=== PATIENT | male | born 1940 ===

== ENCOUNTER 2018-02-17 07:30 | Inpatient (IN) | payer BC, OTHER ==
[2018-02-10 11:38] LABS: PLATELET COUNT 325 10^3/uL (150-400)
--- NOTE | 2018-02-17 06:35 | PDHPUP ---
History & Physical Update H&P update statement: This history and physical update is based on an assessment of the patient which was completed after admission or registration (within 24 hours), but prior to the surgery/procedure. H&P update: H&P reviewed & patient examined, no change in patient's condition since H&P completed
[2018-02-17] MEDS ORDERED: GABAPENTIN 300 MG CAP PO ONE (08:40)
[2018-02-17] MEDS ORDERED: ACETAMINOPHEN 500 MG TAB PO ONE (08:40)
[2018-02-17] MEDS ORDERED: ceFAZolin 2 GM/SWFI 2 GM/20 ML SYR IVP ONE (08:40)
[2018-02-17] MEDS ORDERED: LIDOCAINE 1% 2 ML INJ ID PRN (08:48)
[2018-02-17] MEDS ORDERED: LR 1,000 ML IV ONE (08:48)
[2018-02-17] MEDS ORDERED: CHLORHEXIDINE GLUC HIBICLENS 118 ML BTL TP ONE (09:11)
[2018-02-17] MEDS ORDERED: THROMBIN (BOVINE) 5,000 UNIT VIAL TP ONE (09:11)
[2018-02-17] MEDS ORDERED: BUPIVACAINE 0.25% 30 ML SDV ONE (09:11)
[2018-02-17] MEDS ORDERED: BACITRACIN 50,000 UNITS/10 ML SYR IRR ONE ×2 (09:12→12:38)
[2018-02-17] MEDS ORDERED: EPINEPHrine 1 MG/ML INJ ONE (09:13)
--- NOTE | 2018-02-17 09:37 | PDANEPAE ---
ANE Past Medical History - Cardiovascular History Hx Hypertension: No Hx Arrhythmias: No Hx Chest Pain: No Hx Coronary Artery / Peripheral Vascular Disease: No Hx CHF / Valvular Disease: No Hx Palpitations: No - Pulmonary History Hx COPD: No Hx Asthma/Reactive Airway Disease: No Hx Recent Upper Respiratory Infection: No Hx Oxygen in Use at Home: No Hx Sleep Apnea: No Sleep Apnea Screening Result - Last Documented: Negative - Neurologic History Hx Cerebrovascular Accident: No Hx Seizures: No Hx Dementia: No Neurologic History Comment: numbness to left leg and foot at times - Endocrine History Hx Diabetes: No - Renal History Hx Renal Disorders: No - Liver History Hx Hepatic Disorders: No - Neurological & Psychiatric Hx Hx Neurological and Psychiatric Disorders: No - Cancer History Hx Cancer: No - Congenital Disorder History Hx Congenital Disorders: No - GI History Hx Gastrointestinal Disorders: Yes Gastrointestinal History Comment: reflux- on nexium - Other Health History Other Health History: lower left partial bridge - Chronic Pain History Chronic Pain: Yes (bilateral knees, left thigh and back/ hip area) - Surgical History Prior Surgeries: 06/2015 fibula removed and placed in jaw- 12 hr surgery with skin grafting. 4 different jaw surgeries over 3 years for a benign cyst- most of lower left jaw removed. right knee surgery 30 yrs ago- no knee cap ANE Review of Systems Review of Systems: - Exercise capacity METS (RN): 4 METS ANE Patient History - Allergies Allergies/Adverse Reactions: ibuprofen [From Advil] Allergy (Verified 02/17/18 08:41) ULCERS Sulfa (Sulfonamide Antibiotics) Allergy (Verified 02/17/18 08:41) Hives - Home Medications Home Medications: Acetaminophen [Tylenol ES 500 mg (*)] 500 mg PO BIDMEAL 01/14/18 [Last Taken 22:00] Acetamn/Diphenhydramine 500/25 [Tylenol PM (*)] 1 each PO HS 01/14/18 [Last Taken 02/03/18] Allopurinol [Allopurinol 300 MG (RX)] 300 mg PO DAILY 01/14/18 [Last Taken 02/16 09:00] Aspirin [Aspirin 81mg (*)] 81 mg PO HS 01/14/18 [Last Taken 02/10/18] Cholecalciferol Vit D3 [Vitamin D3 2000 units tab (OTC)] 2,000 units PO BIDMEAL 01/14/18 [Last Taken 02/10/18] Esomeprazole Mag Trihydrate [Nexium] 40 mg PO DAILY 01/14/18 [Last Taken 06:45] FENOFIBRATE 160 mg PO HS 01/14/18 [Last Taken 02/16/18 22:00] Gabapentin [Neurontin 300 MG (*)] 300 mg PO DAILY 01/14/18 [Last Taken 02/17/18 06:15] Gabapentin [Neurontin 300 MG (*)] 600 mg PO HS 01/14/18 [Last Taken 02/16/18 22: 00] Glucosamine Sulfate [Glucosamine Sulfate 500 MG (*)] 1,500 mg PO BIDMEAL [Last Taken 02/10/18] Herbals/Supplements -Info Only 1 ea PO DAILY 01/14/18 [Last Taken 02/10/18] Multivitamins [Multivitamin (*)] 1 each PO DAILY 01/14/18 [Last Taken 02/10/18] Niacin ER [Niaspan 1000 mg (*)] 1,000 mg PO HS 01/14/18 [Last Taken 02/16/18 22: 00] [place]-3 Fatty Acids [Fish Oil 1000 mg (*)] 1,000 mg PO BIDMEAL 01/14/18 [Last Taken 02/10/18] Simvastatin [Zocor] 40 mg PO HS 01/14/18 [Last Taken 02/16/18 22:00] Teriparatide [Forteo] 20 mcg SQ DAILY18 01/14/18 [Last Taken 02/10/18] Vitamin B Complex [Vitamin B Complex (OTC)] 1 each PO DAILY 01/14/18 [Last Taken 02/10/18] - Smoking Hx Smoking Status: Never smoked - Family Anes Hx Family Hx Anesthesia Complications: none ANE Labs/Vital Signs - Labs Result Diagrams: 02/10/18 10:54 - Vital Signs Height: 182.88 cm Weight: 68.039 kg ANE Physical Exam - Airway Mallampati Score: Class 1 - ASA Status ASA Status: II ANE Anesthesia Plan Anesthesia Plan: general endotracheal anesthesia
[2018-02-17] MEDS ORDERED: LACTULOSE 20 GM/30 ML UDCUP PO PRN (09:45)
[2018-02-17] MEDS ORDERED: NALOXONE HCL 0.4 MG/ML INJ IVP PRN ×2 (09:45→14:55)
[2018-02-17] MEDS ORDERED: ONDANSETRON 4 MG/2 ML VIAL IVP PRN ×2 (09:45→14:55)
[2018-02-17] MEDS ORDERED: ONDANSETRON DISINTEGRATING 4 MG TAB PO PRN (09:45)
[2018-02-17] MEDS ORDERED: POLYETHYLENE GLYCOL 3350 17 GM PKT PO PRN (09:45)
[2018-02-17] MEDS ORDERED: NS W/ 20 KCl/L 1,000 ML IV SCH (09:45)
[2018-02-17] MEDS ORDERED: BISACODYL 10 MG SUPP PR PRN (09:45)
[2018-02-17] MEDS ORDERED: HYDROmorphONE/DILAUDID 6 MG/30 ML PCA IV PRN (09:45)
[2018-02-17] MEDS ORDERED: MAGNESIUM HYDROXIDE 30 ML UDCUP PO PRN (09:45)
[2018-02-17] MEDS ORDERED: HYDROCODONE/APAP 5/325 TAB PO PRN (09:45)
[2018-02-17] MEDS ORDERED: diphenhydrAMINE 25 MG CAP PO PRN (09:45)
[2018-02-17] MEDS ORDERED: MIDAZOLAM 2 MG/2 ML VIAL ONE (09:49)
[2018-02-17] MEDS ORDERED: PROPOFOL 200 MG/20 ML VIAL ONE ×2 (09:50→14:09)
[2018-02-17] MEDS ORDERED: PROPOFOL/EMULSION 500 MG/50 ML BOTTLE IV ONE ×2 (09:50→12:09)
[2018-02-17] MEDS ORDERED: fentaNYL 100 MCG/2 ML INJ ONE (09:50)
[2018-02-17] MEDS ORDERED: ONDANSETRON 4 MG/2 ML VIAL ONE (09:54)
[2018-02-17] MEDS ORDERED: METOCLOPRAMIDE 10 MG/2 ML VIAL ONE (09:54)
[2018-02-17] MEDS ORDERED: ROCURONIUM 50 MG/5 ML VIAL ONE (09:54)
[2018-02-17] MEDS ORDERED: NS 1,000 ML IV SCH (10:30)
[2018-02-17] MEDS ORDERED: PHENYLEPHRINE HCL 100 MCG/ML SYR ONE (11:53)
[2018-02-17] MEDS ORDERED: fentaNYL 100 MCG/2 ML INJ IVP PRN (14:55)
[2018-02-17] MEDS ORDERED: DEXAMETHASONE 4 MG/ML VIAL IVP PRN (14:55)
[2018-02-17] MEDS ORDERED: PROMETHAZINE HCL 25 MG/ML INJ IVP PRN (14:55)
[2018-02-17] MEDS ORDERED: LR 500 ML IV PRN (14:55)
--- NOTE | 2018-02-17 14:55 | SOAPPROG ---
SOAP Progress Note Assessment/Plan: Post Op Visit: S: Awake and alert. NAD. Pt with expected lower back pain O: AFVSS/PERRLA/EOMI no droop +lt touch 5/5 BUE/BLE = CDI A/P: 77 yo male that is s/p TLIF at L4/5 and L5/S1 -orders in place -call with any questions or concerns -pt understands and agrees -admit to floor -pt seen by Dr Limon as well 02/17/18 14:55 Objective: Vital Signs Temp Pulse Resp BP Pulse Ox 36.4 C 67 16 154/97 H 94 02/17/18 09:32 02/17/18 09:32 02/17/18 09:32 02/17/18 09:32 02/17/18 09:32 Laboratory Results 02/10/18 10:54 ICD10 Worksheet Patient Problems: Problems Problem Status Onset Arthrodesis status Acute Lumbar radicular pain Acute Lumbar stenosis Acute - ICD10 Problem Qualifiers (1) Lumbar stenosis (2) Lumbar radicular pain (3) Arthrodesis status
--- NOTE | 2018-02-17 14:56 | POSTANESTH ---
Post Anesthetic Evaluation Cardiovascular Status: Normal, Stable Respiratory Status: Normal, Stable Level of Consciousness/Mental Status: Can Participate in Eval Pain Control: Adequate, Prn Tx Ordered Nausea/Vomiting Control: Adequate, Prn Tx Ordered Complications Possibly Related to Anesthesia: None Noted
[2018-02-17] MEDS ORDERED: HYDROmorphONE/DILAUDID 2 MG/ML INJ ONE (15:02)
[2018-02-17] MEDS: HYDROmorphONE/DILAUDID 2 MG/ML INJ IVP PRN ×3 (15:07→15:35)
--- NOTE | 2018-02-17 16:26 | GOP ---
[f rep st] OPERATIVE REPORT DATE OF OPERATION: 02/17/2018 SURGEON: Jasmyne Limon MD SOUND EDITOR: Mayito Aguilar PA-C PREOPERATIVE DIAGNOSIS: Failed back syndrome, lumbar degenerative disk disease L4-5, L5-S1, severe l eft lumbosacral radiculopathy, prior surgery on the right at L4-5, L5-S1, lumbar facet arthropathy, s evere foraminal, left lateral recess stenosis, particularly at L4-5, left foraminal stenosis of L5-S1 . POSTOPERATIVE DIAGNOSIS: Failed back syndrome, lumbar degenerative disk disease L4-5, L5-S1, severe left lumbosacral radiculopathy, prior surgery on the right at L4-5, L5-S1, lumbar facet arthropathy, severe foraminal, left lateral recess stenosis, particularly at L4-5, left foraminal stenosis of L5-S 1. PROCEDURE PERFORMED: Posterior lateral and intervertebral arthrodesis L4-5, L5-S1, with decompressio ns on the left-hand side, L4-5, L5-S1 ([id number], [id number]), posterior segmental instrumentation L4, L5, S1 ([id number]), placement of biomechanical intervertebral device L4-5, L5-S1 (47387 x2), spinal stereotaxy, same incision bone graft harvest, microscope. FINDINGS: ESTIMATED BLOOD LOSS: 200 cc. DESCRIPTION OF PROCEDURE: Patient was taken to the operating room, placed in supine position. Gener al anesthesia was begun. He was flipped prone onto the Ryan table. Care was taken to pad all poi nts of contact. His back was sterilely prepped and draped in usual fashion. A localizing x-ray was taken. We made about a 6 cm incision above the L4-5 and L5-S1 interspace. The subcutaneous tissue was disse cted using Bovie cautery down to the fascia. Subperiosteal dissection was made down the rostral lami na of L4, the inferior lamina of L3, the complete lamina of L5 and S1 was exposed. The L4-5 and L5-S 1 facet joints were exposed, and indeed, the L4-5 facet joints just looked terrible. There were larg e and hypertrophic. There was large cyst coming out of the L4-5 facet joints and we denuded these fa cet joints. After taking a localizing x-ray, placed pedicle screws bilaterally at L4, 5, and S1 using frameless s tealth stereotaxy in the O-arm system. All the screws were checked by the O-arm system and they were in excellent position, and we stimulated each of them and they all stimulated at acceptable levels. We then spent considerable time decorticated all the posterolateral bone bilaterally at L4-5 and the sacrum. We removed all the soft tissue from the lamina of L4-5 and sacrum. We harvested the L5 spi nous process, the inferior L4 spinous process for autologous grafting purposes. We then drilled a le ft hemilaminectomy of L4 and L5 and harvested this bone for autologous grafting purposes. We perform ed an en bloc resection of the left reynaldo arch of L5, and as we worked our way up to the L4-5 level, t here was remarkable compression of the L5 nerve root at the L4-5 level, and this was all totally adhe rent to the overlying hypertrophic facet. At L5-S1, we decompressed the left S1 root and the exiting L5 nerve root. There were no adhesions wh atsoever at this level, but there was evidence of nerve compression both of the S1 root, as well as f oraminal stenosis of exiting L5 root. We spent considerable time under the operating microscope deco mpressing the left L5 nerve root and dissecting all of this material away from the 5 root, and we wer e ultimately able to free it and get the root decompressed. The dura at L4-5 was just remarkably thi n. There was no violation of the dura; however, but there was considerable angst during the surgery as we worked around such a remarkably thin dura at that level, particularly given the adhesions. After fully decompressing both segments, began initially at L4-5 where we mobilized the left L5 root, swept it medially, incised the L4-5 disk, removed the disk and the cartilaginous endplates. We roug hened the subchondral bone to create arthrodesis. We then went to the L5-S1 level where we swept the S1 nerve root medially and worked in the axilla of the L5 root incising the L5-S1 disk, removed the disk and the cartilaginous endplates. We roughened the subchondral bone to create arthrodesis. We then sized and chose a 7 x 28 mm device for L5-S1, and an 8 x 28 mm device for L4-5. We packed milton ne autograft and BMP into the disk space, followed by the expandable devices. They were elevate cage s. We inserted them under fluoroscopic guidance in a serial fashion, expanded them in serial fashion , and shot x-rays confirming excellent location of the devices, as well as the excellent elevation at both the L4-5, 5 1 levels. There was good lordosis of the spine. We then finished decorticating al l the remaining posterior lateral bone bilaterally, placed BMP posterolaterally bilaterally and bone autograft posterolaterally bilaterally. We used a total of 4 mg of BMP for the surgery, 2 mg was greg rola in the intervertebral spaces and 2 mg placed posterolaterally, 1 on each side. We placed a subfa scial drain. Final tightened all the cap screws according to company specification and closed the incision in mult iple layers using Vicryl sutures. Steri-Strips were applied the skin. The patient was reversed from anesthesia, extubated, and transferred to recovery room in stable condition. COMPLICATIONS: None. INSTRUMENTATION USED: In this case was Solera 5.5 mm system with a titanium azeb, used an 8 x 28 mm E levate cage at L4-5 and a 7 x 28 mm Elevate cage at L5-S1. INDICATIONS FOR PROCEDURE: The patient is a 77-year-old with prior history of right-sided decompress ions at L4-5, 5 1 with excellent clinical result who later developed severe left leg pain. MRI demon strated what appeared to be incompetent facets at L4-5 and there is early spondylolisthesis there. I saw no way to perform a lateral recess decompression without further destabilizing in the spine. He had a failed back. There was remarkable evidence of change on his MRI at the L4-5 level in particul ar, as well as foraminal stenosis, and I suggested a complete decompression on the left-hand side, re moval of the left L4-5 facet joint and L5-S1, and posterior stabilization with an intervertebral arth rodesis at that level. I thought there was a small chance he would get better with the simple decomp ression alone, but I felt that the segment at L4-5, 5 1 would really only truly be addressed with ins trumented fusion. There was evidence of incompetence of the right-sided facets as well, although thi s was degenerative in nature and did not appear to be related to his prior surgery on the right-hand side. He did want to proceed. He knew there was a problem at L3-4 prospectively and understood that in time he may ultimately require instrumentation up to the L3-4 level. It is our hope that this al one would give him good clinical benefit and that the future need for L3-4 surgery might not ever com e to fruition, only time would tell. He understood this. He knew there was risk of continued sympto ms, nerve injury, and spinal fluid leak, and he wanted to proceed. /[id number]/MODL
[2018-02-17] MEDS: oxyCODONE IR 5 MG TAB PO PRN ×2 (16:42→17:50)
[2018-02-17] MEDS: ACETAMINOPHEN 500 MG TAB PO SCH (17:50)
[2018-02-17] MEDS: ceFAZolin 2 GM/DEXTROSE 100 ML IV SCH (17:50)
[2018-02-17] MEDS: CHOLECALCIFEROL VIT D3 2,000 UNITS TAB/CAP PO SCH (17:50)
[2018-02-17] MEDS ORDERED: Teriparatide [Forteo] 20 MCG SQ SCH (18:00)
[2018-02-17] MEDS: NIACIN ER 1000 MG TAB.ER PO SCH (20:49)
[2018-02-17] MEDS: FENOFIBRATE 145 MG TAB PO SCH (20:49)
[2018-02-17] MEDS: FAMOTIDINE 20 MG TAB PO SCH (20:50)
[2018-02-17] MEDS: SENNOSIDES/DOCUSATE SODIUM TAB PO SCH (20:50)
[2018-02-17] MEDS: GABAPENTIN 300 MG CAP PO SCH (20:50)
[2018-02-17] MEDS: ATORVASTATIN CALCIUM 20 MG TAB PO SCH (20:50)
[2018-02-17] MEDS: ACETAMN/DIPHENHYDRAMINE 500/25MG TAB PO SCH (20:55)
[2018-02-17] MEDS ORDERED: NON-FORMULARY NEW DRUG (Simvastatin [Zocor] 40 MG) PO SCH (21:00)
[2018-02-17] MEDS ORDERED: NON-FORMULARY NEW DRUG (Fenofibrate [Fenofibrate] 160 MG) PO SCH (21:00)
--- NOTE | 2018-02-17 22:31 | PDMN ---
Medical Necessity Medical necessity: Patient meets inpatient criteria per PA/physician notes and [facility] S-820 Lumbar Fusion (TLIF L4/5, L5/S1; CPT 59819 / Medicare inpatient-only surgery.)
[2018-02-18] MEDS: ceFAZolin 2 GM/DEXTROSE 100 ML IV SCH (02:04)
[2018-02-18] MEDS: oxyCODONE IR 5 MG TAB PO PRN (02:04)
[2018-02-18 05:46] LABS: PLATELET COUNT 303 10^3/uL (150-400)
[2018-02-18] MEDS: FAMOTIDINE 20 MG TAB PO SCH ×2 (07:58→21:23)
[2018-02-18] MEDS: PANTOPRAZOLE SODIUM 40 MG TAB PO SCH (07:58)
--- NOTE | 2018-02-18 08:16 | NEUSURGPN ---
Date of Surgery: 02/17/18 Post Op Day: 1 Assessment/Plan: Assessment: 77 yo male that is s/p TLIF at L4/5 and L5/S1 POD #1 Plan: -pt with expected lower back pain-will adjust medications -recommend IV meds for now as stomach is upset from PO meds -pt states that his leg feels much better -PT/OT pending -post op xrays pending -brace when out of bed -orders in place -call with any questions or concerns -pt understands and agrees -pt seen by Dr Limon as well -pt updated on plan and agrees Subjective: Awake and alert. Pt with some expected lower back pain but has some "upset stomach" from the pain medications-we will adjust Objective: AFVSS/PERRLA/EOMI no droop +lt touch 5/5 BUE/BLE = CDI Neuro Check Frequency: per routine Urinary Catheter in Place: No Catheter Insertion Date: 02/17/18 - Physician Discussed Patient with : Braxton Patient Seen by : Braxton Neurosurgery Physical Exam - Vitals, I&O, Labs I and O 02/17/18 02/18/18 02/19/18 05:59 05:59 05:59 Intake Total 2310 400 Output Total 1730 Balance 580 400 Weight 68.039 kg Intake: Oral (ml) 510 400 IV Intake (ml) 1800 Output: Urine (ml) 1140 Catheter 1140 Estimated Blood Loss (ml) 200 MELODY Drain Output (ml) 390 #1 Left Back Ryan 390 [place]imes Vital Signs Temp Pulse Resp BP Pulse Ox 37.2 C 84 16 116/76 95 02/18/18 07:39 02/18/18 07:39 02/18/18 07:39 02/18/18 07:39 02/18/18 07:39 Laboratory Results 02/18/18 05:03 02/18/18 05:03 ICD10 Worksheet Patient Problems: Problems Problem Status Onset Arthrodesis status Acute Lumbar radicular pain Acute Lumbar stenosis Acute - ICD10 Problem Qualifiers (1) Lumbar stenosis (2) Lumbar radicular pain (3) Arthrodesis status
[2018-02-18] MEDS: ALLOPURINOL 300 MG TAB PO SCH (08:56)
[2018-02-18] MEDS: ACETAMINOPHEN 500 MG TAB PO SCH ×2 (08:56→17:45)
[2018-02-18] MEDS: CHOLECALCIFEROL VIT D3 2,000 UNITS TAB/CAP PO SCH ×2 (08:57→17:45)
[2018-02-18] MEDS: SENNOSIDES/DOCUSATE SODIUM TAB PO SCH ×2 (08:57→21:20)
[2018-02-18] MEDS: HYDROmorphONE/DILAUDID 1 MG/ML INJ IVP PRN ×4 (08:58→21:12)
[2018-02-18] MEDS ORDERED: NON-FORMULARY NEW DRUG (Esomeprazole Mag Trihydrate [Nexium] 40 MG) PO SCH (09:00)
[2018-02-18] MEDS ORDERED: GABAPENTIN 300 MG CAP PO SCH (09:00)
--- NOTE | 2018-02-18 11:24 | ASMTCMCOM ---
CM Note CM Note Notes: Pt is s/p TLIF. Met w/ pt who is anticipating needing SNF rehab. OT recommending SNF, awaiting PT rec. Pt would like to go to [facility]. Referral sent and [facility] from this facility on-site and met w/pt. They are able to accept pending insurance auth. CM will follow. Date Signed: 02/18/2018 11:23 AM Electronically Signed By:Denae Pineda RN
[2018-02-18] MEDS: NIACIN ER 1000 MG TAB.ER PO SCH (21:20)
[2018-02-18] MEDS: ACETAMN/DIPHENHYDRAMINE 500/25MG TAB PO SCH (21:21)
[2018-02-18] MEDS: ATORVASTATIN CALCIUM 20 MG TAB PO SCH (21:21)
[2018-02-18] MEDS: FENOFIBRATE 145 MG TAB PO SCH (21:22)
[2018-02-18] MEDS: GABAPENTIN 300 MG CAP PO SCH (21:23)
[2018-02-18] MEDS: METHOCARBAMOL 750 MG TAB PO PRN (21:37)
[2018-02-19] MEDS: HYDROmorphONE/DILAUDID 1 MG/ML INJ IVP PRN ×2 (01:34→04:47)
--- NOTE | 2018-02-19 08:11 | NEUSURGPN ---
Date of Surgery: 02/17/18 Post Op Day: 2 Assessment/Plan: Assessment: 77 yo male that is s/p TLIF at L4/5 and L5/S1 POD #2 Plan: -pt with expected lower back pain-adjusted medications yesterday but has continued pain -recommend IV meds yesterday as stomach was upset-he is feeling better now. Will add MSContin for pain control to see if can get off of IV meds -will increase his neurontin as well -pt states that his leg feels much better but has some right hip pain -PT/OT pending -post op xrays look good-reviewed with Dr Braxton villagomez when out of bed -orders in place -call with any questions or concerns -pt understands and agrees -d/w Dr Limon -pt updated on plan and agrees Subjective: Awake and alert. NAD. Eating/drinking and voiding. Passing gas Objective: AFVSS/PERRLA/EOMI no droop +lt touch 5/5 BUE/BLE = abd not distended CDI Neuro Check Frequency: per routine Urinary Catheter in Place: No Catheter Insertion Date: 02/17/18 - Physician Discussed Patient with : Braxton Neurosurgery Physical Exam - Vitals, I&O, Labs I and O 02/18/18 02/19/18 02/20/18 05:59 05:59 05:59 Intake Total 2310 1450 Output Total 1730 1920 125 Balance 580 -470 -125 Weight 68.039 kg Intake: Oral (ml) 510 1450 IV Intake (ml) 1800 Output: Urine (ml) 1140 1650 125 Catheter 1140 Urinal 1650 125 Estimated Blood Loss (ml) 200 MELODY Drain Output (ml) 390 270 #1 Left Back Ryan 390 270 Grimes Other: Intake Quantity Yes Sufficient Number of Voids Urinal 1 1 Vital Signs Temp Pulse Resp BP Pulse Ox 37.1 C 97 16 131/79 H 92 02/19/18 07:51 02/19/18 07:51 02/19/18 07:51 02/19/18 07:51 02/19/18 07:51 Laboratory Results 02/18/18 05:03 02/18/18 05:03 ICD10 Worksheet Patient Problems: Problems Problem Status Onset Arthrodesis status Acute Lumbar radicular pain Acute Lumbar stenosis Acute - ICD10 Problem Qualifiers (1) Lumbar stenosis (2) Lumbar radicular pain (3) Arthrodesis status
[2018-02-19] MEDS: ALLOPURINOL 300 MG TAB PO SCH (09:40)
[2018-02-19] MEDS: FAMOTIDINE 20 MG TAB PO SCH ×2 (09:40→21:43)
[2018-02-19] MEDS: PANTOPRAZOLE SODIUM 40 MG TAB PO SCH (09:40)
[2018-02-19] MEDS: ACETAMINOPHEN 500 MG TAB PO SCH ×2 (09:40→17:16)
[2018-02-19] MEDS: GABAPENTIN 100 MG CAP PO SCH ×3 (09:40→21:43)
[2018-02-19] MEDS: CHOLECALCIFEROL VIT D3 2,000 UNITS TAB/CAP PO SCH ×2 (09:40→17:16)
[2018-02-19] MEDS: SENNOSIDES/DOCUSATE SODIUM TAB PO SCH ×2 (09:54→21:44)
[2018-02-19] MEDS: morphINE SR 15 MG TAB PO SCH ×2 (11:38→21:44)
--- NOTE | 2018-02-19 14:04 | ASMTCMCOM ---
CM Note CM Note Notes: Updated neurosurgery progress note and OT sent to [facility]. Plan remains d/c to [facility] once insurance authorization is obtained. Date Signed: 02/19/2018 02:03 PM Electronically Signed By:MARIA T Bustos
[2018-02-19] MEDS: ACETAMN/DIPHENHYDRAMINE 500/25MG TAB PO SCH (21:42)
[2018-02-19] MEDS: ATORVASTATIN CALCIUM 20 MG TAB PO SCH (21:42)
[2018-02-19] MEDS: FENOFIBRATE 145 MG TAB PO SCH (21:43)
[2018-02-19] MEDS: NIACIN ER 1000 MG TAB.ER PO SCH (21:44)
[2018-02-20] MEDS: ENOXAPARIN 40 MG/0.4 ML SYR SC SCH (08:59)
[2018-02-20] MEDS: FAMOTIDINE 20 MG TAB PO SCH ×2 (08:59→20:52)
[2018-02-20] MEDS: SENNOSIDES/DOCUSATE SODIUM TAB PO SCH ×2 (09:00→20:54)
[2018-02-20] MEDS: ACETAMINOPHEN 500 MG TAB PO SCH ×2 (09:00→18:09)
[2018-02-20] MEDS: PANTOPRAZOLE SODIUM 40 MG TAB PO SCH (09:00)
[2018-02-20] MEDS: ALLOPURINOL 300 MG TAB PO SCH (09:00)
[2018-02-20] MEDS: CHOLECALCIFEROL VIT D3 2,000 UNITS TAB/CAP PO SCH ×2 (09:00→18:09)
[2018-02-20] MEDS: morphINE SR 15 MG TAB PO SCH (09:01)
[2018-02-20] MEDS: GABAPENTIN 100 MG CAP PO SCH (09:02)
--- NOTE | 2018-02-20 09:57 | NEUSURGPN ---
Date of Surgery: 02/17/18 Post Op Day: 3 Assessment/Plan: Assessment: 77 yo male that is s/p TLIF at L4/5 and L5/S1 POD #3 Plan: -pt with expected lower back pain that is better with medications. He states that the MScontin and increase in gabapentin caused too much sedation. He did sleep well and his pain is much better -he is eating/drinking and voiding well -will stick with PO dilaudid and robaxin. He can take oxycodone if needed -pt states that his leg feels much better as does the right hip -PT/OT pending -post op xrays look good-reviewed with Dr Braxton villagomez when out of bed -orders in place -call with any questions or concerns -pt understands and agrees -d/w Dr Limon -pt updated on plan and agrees -plan for rehab on Thursday when accepted Subjective: Awake and alert. NAD. Pt ambulating well. No navarro/neck/chest/abd or gu complaints. Objective: AFVSS/PERRLA/EOMI no droop +lt touch 5/5 BUE/BLE = abd not distended-moving bowels CDI Neuro Check Frequency: per routine Urinary Catheter in Place: No Catheter Insertion Date: 02/17/18 - Physician Discussed Patient with : Braxton Neurosurgery Physical Exam - Vitals, I&O, Labs I and O 02/19/18 02/20/18 02/21/18 05:59 05:59 05:59 Intake Total 1450 Output Total 1920 1327 290 Balance -470 -1327 -290 Intake: Oral (ml) 1450 Output: Urine (ml) 1650 1225 250 Urinal 1650 1225 250 MELODY Drain Output (ml) 270 102 40 #1 Left Back Ryan 270 102 40 Grimes Other: Intake Quantity Yes Sufficient Number of Voids Urinal 1 1 1 Vital Signs Temp Pulse Resp BP Pulse Ox 36.9 C 93 16 124/73 H 92 02/20/18 07:51 02/20/18 07:51 02/20/18 07:51 02/20/18 07:51 02/20/18 08:56 Laboratory Results 02/18/18 05:03 02/18/18 05:03 ICD10 Worksheet Patient Problems: Problems Problem Status Onset Arthrodesis status Acute Lumbar radicular pain Acute Lumbar stenosis Acute - ICD10 Problem Qualifiers (1) Lumbar stenosis (2) Lumbar radicular pain (3) Arthrodesis status
[2018-02-20] MEDS: HYDROmorphONE/DILAUDID 2 MG TAB PO PRN ×2 (13:54→20:53)
[2018-02-20] MEDS: GABAPENTIN 300 MG CAP PO SCH ×2 (16:39→20:53)
[2018-02-20] MEDS: ACETAMN/DIPHENHYDRAMINE 500/25MG TAB PO SCH (20:52)
[2018-02-20] MEDS: ATORVASTATIN CALCIUM 20 MG TAB PO SCH (20:52)
[2018-02-20] MEDS: FENOFIBRATE 145 MG TAB PO SCH (20:53)
[2018-02-20] MEDS: NIACIN ER 1000 MG TAB.ER PO SCH (20:54)
[2018-02-21] MEDS: HYDROmorphONE/DILAUDID 2 MG TAB PO PRN ×4 (03:31→22:43)
[2018-02-21] MEDS: FAMOTIDINE 20 MG TAB PO SCH ×2 (08:26→20:45)
[2018-02-21] MEDS: CHOLECALCIFEROL VIT D3 2,000 UNITS TAB/CAP PO SCH ×2 (08:26→18:19)
[2018-02-21] MEDS: SENNOSIDES/DOCUSATE SODIUM TAB PO SCH ×2 (08:26→20:50)
[2018-02-21] MEDS: ACETAMINOPHEN 500 MG TAB PO SCH ×2 (08:26→18:17)
[2018-02-21] MEDS: PANTOPRAZOLE SODIUM 40 MG TAB PO SCH (08:26)
[2018-02-21] MEDS: ENOXAPARIN 40 MG/0.4 ML SYR SC SCH (08:27)
[2018-02-21] MEDS: GABAPENTIN 300 MG CAP PO SCH ×3 (08:27→20:46)
[2018-02-21] MEDS: ALLOPURINOL 300 MG TAB PO SCH (08:27)
[2018-02-21] MEDS: METHOCARBAMOL 750 MG TAB PO PRN (08:34)
--- NOTE | 2018-02-21 09:53 | NEUSURGPN ---
Date of Surgery: 02/17/18 Post Op Day: 4 Assessment/Plan: Assessment: 77 yo male that is s/p TLIF at L4/5 and L5/S1 POD #4 Plan: -pt with expected lower back pain that is better with medications. He states that the MScontin and increase in gabapentin caused too much sedation. He did sleep well and his pain is much better. He continues to do well at current pain medication plan -he is eating/drinking and voiding well -will stick with PO dilaudid and robaxin. He can take oxycodone if needed -pt states that his leg feels much better as does the right hip -PT/OT-CPM -post op xrays look good-reviewed with Dr Limon -lillie when out of bed-tolerating well-no skin issues -orders in place -call with any questions or concerns -pt understands and agrees -d/w Dr Limon -pt updated on plan and agrees -plan for rehab on Thursday when accepted Subjective: Awake and alert. NAD. Eating/drinking and voiding. No f/c/n/v/d. No navarro/neck/ chest/abd or gu complaints. Objective: AFVSS/PERRLA/EOMI no droop +lt touch 5/5 BUE/BLE = abd not distended-moving bowels CDI Neuro Check Frequency: per routine Urinary Catheter in Place: No Catheter Insertion Date: 02/17/18 - Physician Discussed Patient with : Braxton Neurosurgery Physical Exam - Vitals, I&O, Labs I and O 02/20/18 02/21/18 02/22/18 05:59 05:59 05:59 Intake Total 2150 100 Output Total 1327 2140 750 Balance -1327 10 -650 Intake: Oral (ml) 2150 100 Output: Urine (ml) 1225 2100 750 Toilet 500 250 Urinal 1225 1600 500 MELODY Drain Output (ml) 102 40 #1 Left Back Ryan 102 40 Grimes Other: Intake Quantity Yes Sufficient Number of Voids Toilet 1 Urinal 1 1 1 Number of Stools Toilet 1 Vital Signs Temp Pulse Resp BP Pulse Ox 36.7 C 86 14 112/67 92 02/21/18 07:40 02/21/18 07:40 02/21/18 07:40 02/21/18 07:40 02/21/18 07:40 Laboratory Results 02/18/18 05:03 02/18/18 05:03 ICD10 Worksheet Patient Problems: Problems Problem Status Onset Arthrodesis status Acute Lumbar radicular pain Acute Lumbar stenosis Acute - ICD10 Problem Qualifiers (1) Lumbar stenosis (2) Lumbar radicular pain (3) Arthrodesis status
[2018-02-21 19:21] LABS: CREATINE KINASE 136 IU/L (0-224)
[2018-02-21] MEDS ORDERED: NS 500 ML IV ONE (20:30)
[2018-02-21] MEDS: ACETAMN/DIPHENHYDRAMINE 500/25MG TAB PO SCH (20:45)
[2018-02-21] MEDS: ATORVASTATIN CALCIUM 20 MG TAB PO SCH (20:46)
[2018-02-21] MEDS: NIACIN ER 1000 MG TAB.ER PO SCH (20:46)
[2018-02-21] MEDS: FENOFIBRATE 145 MG TAB PO SCH (20:46)
[2018-02-21] MEDS ORDERED: NS 1,000 ML IV SCH (22:00)
--- NOTE | 2018-02-21 23:51 | GCON ---
[f rep st] CONSULTATION DATE OF CONSULTATION: 02/21/2018 REASON FOR CONSULTATION: Tachycardia. HISTORY OF PRESENT ILLNESS: This is a 77-year-old male who has no previous cardiac history. He unde rwent lumbar spine surgery on 02/17/2018. He has been doing well, but this afternoon he developed an episode where he felt scattered and unable to focus or complete tasks like ordering lunch. This las delmer about 30 minutes. He says that he has had episodes like this in the past but not as severe. He also developed tachycardia with heart rates in the 120s. His heart rate now has come down with a elyssa us of fluid. He denies any chest pain or shortness of breath. No cough. No fevers or chills. No a bdominal symptoms. No focal weakness. Of note, he felt that this did happen shortly after he took o ral Dilaudid. He has been getting Dilaudid. He has had a few doses of oral Dilaudid and some doses of IV Dilaudid. 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 REVIEW OF SYSTEMS: A 10-point review of systems was obtained and was negative. PAST MEDICAL HISTORY: 1. Hyperlipidemia. 2. GERD. 3. Extensive surgery on the right leg. 4. Jaw surgery where part of his jaw was replaced with part of fibula due to a cyst. MEDICATIONS: Reviewed. SOCIAL HISTORY: No smoking or alcohol. FAMILY HISTORY: Reviewed and noncontributory. PHYSICAL EXAMINATION: VITAL SIGNS: Afebrile, blood pressure is 129/85, heart rate is now in the 90s , oxygen saturation 95% on 1 L. General: Patient is well developed in no apparent distress. HEENT: Nonicteric sclerae. Extraocular movements intact. Moist mucous membranes. NECK: Supple. No thy romegaly. LUNGS: Good effort. Clear to auscultation bilaterally. CARDIOVASCULAR: Regular rate an d rhythm. No murmurs or gallops. ABDOMEN: Positive bowel sounds. Soft, nontender, nondistended. No hepatosplenomegaly. EXTREMITIES: No clubbing, cyanosis, or edema. SKIN: Without rash, dry, int act. NEUROLOGIC: Alert and oriented x3. Moving all 4 extremities equally. PSYCH: Normal affect. LABS: There is a troponin that is negative initially. EKG personally reviewed and interpreted shows normal sinus rhythm with no ischemic changes. ASSESSMENT: This is a 77-year-old male who presented with mild tachycardia and 30 minutes of difficu lty focusing. PLAN: 1. Tachycardia and possible altered mental status. Patient's heart rate is getting better with IV f luid. He may be a little bit on the dry side, and combination with pain medicines perhaps caused thi s episode. We will give a little bit more IV fluid. Pulmonary embolism is a consideration. He has no chest pain though, and his heart rate seems to be responding to the fluid bolus. He has been on D VT prophylaxis. If his heart rate continues to be high, we could consider CT angiogram. We will rep eat a troponin in the morning. It could be that the pain medicine exacerbated this. However, he had received a few doses of Dilaudid prior to this. 2. Spine surgery. 3. History of hyperlipidemia. 4. History of gout. 5. DVT prophylaxis. He has been on Lovenox since yesterday, which was postop day #3. Thank you for this consultation. We will follow along with you. /[id number]/MODL
[2018-02-22 05:32] LABS: PLATELET COUNT 338 10^3/uL (150-400)
[2018-02-22] MEDS: ENOXAPARIN 40 MG/0.4 ML SYR SC SCH (08:07)
[2018-02-22] MEDS: GABAPENTIN 300 MG CAP PO SCH ×2 (08:08→17:01)
[2018-02-22] MEDS: CHOLECALCIFEROL VIT D3 2,000 UNITS TAB/CAP PO SCH (08:08)
[2018-02-22] MEDS: PANTOPRAZOLE SODIUM 40 MG TAB PO SCH (08:08)
[2018-02-22] MEDS: ALLOPURINOL 300 MG TAB PO SCH (08:08)
[2018-02-22] MEDS: FAMOTIDINE 20 MG TAB PO SCH (08:08)
[2018-02-22] MEDS: SENNOSIDES/DOCUSATE SODIUM TAB PO SCH (08:08)
[2018-02-22] MEDS: ACETAMINOPHEN 500 MG TAB PO SCH (08:08)
--- NOTE | 2018-02-22 08:25 | NEUSURGPN ---
Date of Surgery: 02/17/18 Post Op Day: 5 Assessment/Plan: Assessment: 77 yo male that is s/p TLIF at L4/5 and L5/S1 POD #5 Plan: -pt with expected lower back pain that is better with medications. Has some left hip discomfort with positioning, not with walking or laying in bed -PT/OT-CPM -post op xrays look good-reviewed with Dr Limon -lillie when out of bed-tolerating well-no skin issues -Patient with episode of tachycardia last night, appreciate medicines consult for this patient. Troponin negative. Patient denies SOB or chest pain. Patient states he feels like he just had a panic attack and is better now -Ok to dc to rehab once bed available and if ok with medicine -Patient seen by Dr Limon as well -Please call neurosurgery with any questions/concerns Subjective: Patient feeling well this am, denies SOB or CP Objective: AxO x3 No facial droop BUE BLE 5/5 Sensation intact to light touch BLE Dressing removed-Steri strips in place CDI Neuro Check Frequency: per routine Urinary Catheter in Place: No Catheter Insertion Date: 02/17/18 - Physician Discussed Patient with : Braxton Patient Seen by : Braxton Neurosurgery Physical Exam - Vitals, I&O, Labs I and O 02/21/18 02/22/18 02/23/18 05:59 05:59 05:59 Intake Total 2150 2852 Output Total 2140 2125 Balance 10 727 Intake: Oral (ml) 2150 1760 IV Intake (ml) 1092 Output: Urine (ml) 2100 2125 Toilet 500 850 Urinal 1600 1275 MELODY Drain Output (ml) 40 #1 Left Back Ryan 40 Grimes Other: Intake Quantity Yes Yes Sufficient Number of Voids Toilet 1 1 Urinal 1 1 Number of Stools Toilet 1 Vital Signs Temp Pulse Resp BP Pulse Ox 37.1 C 90 16 122/68 H 94 02/22/18 08:00 02/22/18 08:00 02/22/18 08:00 02/22/18 08:00 02/22/18 08:00 Laboratory Results 02/22/18 05:15 02/22/18 05:15 ICD10 Worksheet Patient Problems: Problems Problem Status Onset Arthrodesis status Acute Lumbar radicular pain Acute Lumbar stenosis Acute
[2018-02-22] MEDS: HYDROmorphONE/DILAUDID 2 MG TAB PO PRN ×2 (10:41→17:01)
--- NOTE | 2018-02-22 11:10 | HOSPPROG ---
Hospitalist Progress Note Assessment/Plan: Patient is a 77-year-old male who underwent lumbar spine surgery on February 17. The hospitalist was asked to further evaluate him in regards to his tachycardia. Today is my 1st encounter with the patient. Chart reviewed. * tachycardia -was given a fluid bolus with resolution -none further today -unlikely a PE because he is not tachycardic and not hypoxic, not short of breath -reviewed his 12 lead ECG-shows sinus tachycardia * recent lumbar surgery -overall doing well with surgery *anemia *mild hyponatremia * gout * hyperlipidemia *Plan: dc today per neurosurgery Subjective: Johnny said his back is somewhat uncomfortable but has no other complaints. Objective: Vital Signs Temp Pulse Resp BP Pulse Ox 37.1 C 90 16 122/68 H 94 02/22/18 08:00 02/22/18 08:00 02/22/18 08:00 02/22/18 08:00 02/22/18 08:00 Laboratory Results 02/22/18 05:15 02/22/18 05:15 02/21/18 02/22/18 02/23/18 05:59 05:59 05:59 Intake Total 2150 2852 Output Total 2140 2125 350 Balance 10 727 -350 - Physical Exam Constitutional: no apparent distress, other (slender) Eyes: PERRL Ears, Nose, Mouth, Throat: hearing normal Cardiovascular: regular rate and rhythym, No tachycardia Respiratory: no respiratory distress Skin: warm Musculoskeletal: generalized weakness Neurologic: AAOx3 Psychiatric: interacting appropriately ICD10 Worksheet Patient Problems: Problems Problem Status Onset Arthrodesis status Acute Lumbar radicular pain Acute Lumbar stenosis Acute
--- NOTE | 2018-02-22 11:31 | PDIAF ---
- Diagnosis Diagnosis: S/P L4-S1 TLIF Code Status: Full Code - Medication Management Discharge Medications: Medications to Continue on Transfer Acetaminophen [Tylenol ES 500 mg (*)] 500 mg PO BIDMEAL 01/14/18 [Last Taken 22:00] Aspirin [Aspirin 81mg (*)] 81 mg PO HS 01/14/18 [Last Taken 02/10/18] Cholecalciferol Vit D3 [Vitamin D3 2000 units tab (OTC)] 2,000 units PO BIDMEAL 01/14/18 [Last Taken 02/10/18] Esomeprazole Mag Trihydrate [Nexium] 40 mg PO DAILY 01/14/18 [Last Taken 06:45] FENOFIBRATE 160 mg PO HS 01/14/18 [Last Taken 02/16/18 22:00] Gabapentin [Neurontin 300 MG (*)] 300 mg PO DAILY 01/14/18 [Last Taken 02/17/18 06:15] Gabapentin [Neurontin 300 MG (*)] 600 mg PO HS 01/14/18 [Last Taken 02/16/18 22: 00] Glucosamine Sulfate [Glucosamine Sulfate 500 MG (*)] 1,500 mg PO BIDMEAL [Last Taken 02/10/18] Herbals/Supplements -Info Only 1 ea PO DAILY 01/14/18 [Last Taken 02/10/18] Multivitamins [Multivitamin (*)] 1 each PO DAILY 01/14/18 [Last Taken 02/10/18] Niacin ER [Niaspan 1000 mg (*)] 1,000 mg PO HS 01/14/18 [Last Taken 02/16/18 22: 00] [place]-3 Fatty Acids [Fish Oil 1000 mg (*)] 1,000 mg PO BIDMEAL 01/14/18 [Last Taken 02/10/18] Simvastatin [Zocor] 40 mg PO HS 01/14/18 [Last Taken 02/16/18 22:00] Teriparatide [Forteo] 20 mcg SQ DAILY18 01/14/18 [Last Taken 02/10/18] Vitamin B Complex [Vitamin B Complex (OTC)] 1 each PO DAILY 01/14/18 [Last Taken 02/10/18] HYDROmorphone HCL [Dilaudid 2 mg (*)] 2 - 4 mg PO Q4HRS PRN tab 02/22/18 [Last Taken Unknown] Methocarbamol [Robaxin 750 mg (*)] 750 mg PO QID PRN tab 02/22/18 [Last Taken Unknown] Sennosides/Docusate Sodium [Senokot-S] 1 - 2 tab PO BID tab 02/22/18 [Last Taken Unknown] Discharge Medications: Refer to the Discharge Home Medication list for PRN reason. PICC Care - Routine: N/A - Orders Services needed: Registered Nurse, Certified Employment Interviewer, Physical Therapy, Occupational Therapy Isolation Type: None Diet Recommendation: no restrictions on diet Diet Texture: Regular Texture Diet Handley: Not applicable Wound Care Instructions: No dressing needed, leave steri strips in place Sutures/Alissa Site: Leave steri strips in place Activity/Weight Bearing Restrictions: No bending or twisting. Do not lift greater than 10 pounds Equipment: Wear brace when out of bed, ok not to wear when in shower Additional Instructions: No NSAID's for 6 months No bending or twisting Do not lift greater than 10 pounds Wear brace when out of bed Ok to shower Do not submerge incision - Follow Up Care Current Providers and Referrals: NONE *PRIMARY CARE P,. [Primary Care Provider] - Judy Limon MD [Medical Doctor] - follow up in 2 weeks
[2018-02-22 11:36] VITALS: BP 127/87
--- NOTE | 2018-02-22 12:42 | CPEKG ---
Heart Rate: 107 RR Interval: 561 P-R Interval: 180 QRSD Interval: 88 QT Interval: 320 QTC Interval: 427 P [place]: -3 QRS [place]: -1 T Wave [place]: 39 EKG Severity - BORDERLINE ECG - EKG Impression: SINUS TACHYCARDIA EKG Impression: BORDERLINE R WAVE PROGRESSION, ANTERIOR LEADS Electronically Signed By: Roby Green 22-Feb-2018 13:16:46
--- NOTE | 2018-02-22 16:03 | ASMTLACE ---
LACE Length of stay for Answers: 4-6 days current admission Acuity / Level of Answers: Yes Care: Did the patient have an inpatient admission? Score: 7 Date Signed: 02/22/2018 04:02 PM Electronically Signed By:MARIA T Bustos
--- NOTE | 2018-02-23 08:58 | ASDISCHSUM ---
Discharge Information Plan Status:SNF Medically Cleared to Leave: Discharge Date:02/22/2018 05:05 PM CM D/C Disposition: ADT D/C Disposition:Other Rehab, Not [facility] Projected Discharge Date:02/19/2018 11:00 AM Transportation at D/C: Discharge Delay Reason: Follow-Up Date:02/19/2018 11:00 AM Discharge Slot: Final Diagnosis: Placement Information Referral Type:*[facility]ci/SNF Referral ID:[id number] Provider Name:[facility] Address 1:[address] Address 2: City:[place] Selection Factors: State:[place] Patient Contact Information Contact Name:ROANNE MARIE Relationship: Address:[address] Work Phone: [facility]:[place] Alternate Phone: State/Zip Code:[place] [address] Email: Financial Information Financial Class:HMO and PPO Plans Primary Plan Desc: OUT OF STATE PPO Primary Plan Number:[id number] Secondary Plan Desc: Secondary Plan Number: Assessment Information LACE LACE Length of stay for Answers: 4-6 days current admission Acuity / Level of Answers: Yes Care: Did the patient have an inpatient admission? Score: 7 Date Signed: 02/22/2018 04:02 PM Electronically Signed By:MARIA T Bustos [facility] Progress Note CM Note CM Note Notes: Pt is s/p TLIF. Met w/ pt who is anticipating needing SNF rehab. OT recommending SNF, awaiting PT rec. Pt would like to go to [facility]. Referral sent and [facility] from this facility on-site and met w/pt. They are able to accept pending insurance auth. CM will follow. Date Signed: 02/18/2018 11:23 AM Electronically Signed By:Denae Pineda RN [facility] CM Progress Note CM Note CM Note Notes: Updated neurosurgery progress note and OT sent to [facility]. Plan remains d/c to [facility] once insurance authorization is obtained. Date Signed: 02/19/2018 02:03 PM Electronically Signed By:MARIA T Bustos Intervention Information
== END 2018-02-22 17:05 | DRG 460 ==
LOC: F3N 08:08
PROVIDERS: ADMIT Neurological Surgery; ATTEND Neurological Surgery
DX: M96.1 Postlaminectomy syndrome, not elsewhere classified (principal); M48.061 Spinal stenosis, lumbar region without neurogenic claudication; M48.07 Spinal stenosis, lumbosacral region; M51.36 Other intervertebral disc degeneration, lumbar region; M51.37 Other intervertebral disc degeneration, lumbosacral region; M51.26 Other intervertebral disc displacement, lumbar region; M71.38 Other bursal cyst, other site; E87.1 Hypo-osmolality and hyponatremia; D62 Acute posthemorrhagic anemia; M54.16 Radiculopathy, lumbar region; R00.0 Tachycardia, unspecified; G89.18 Other acute postprocedural pain; E78.5 Hyperlipidemia, unspecified; K21.9 Gastro-esophageal reflux disease without esophagitis; M10.9 Gout, unspecified; Z86.018 Personal history of other benign neoplasm
CPT/HCPCS: 97116-GP; 97161-GP; 97166-GO; 97535-GO; C1713; J0171; J0690; J1170; J1650; J2250; J2270; J2370; J2405; J2704; J2765; J3010